=== PATIENT | male | born 1955 | race Caucasian/White ===

== ENCOUNTER 2019-09-03 12:00 | Outpatient (RCR) | payer OTHER, SELFPAY ==
--- NOTE | 2019-08-05 17:28 | PT.OIE ---
Current Diagnoses Unspecified urinary incontinence (07/31/19) Visit Care Team Role Provider Type Duc Lowery Attending Provider Non-Staff Primary Care Provider Referring Provider Specialty: Medical Address: [facility] [address] [facility], [place], [address] Email: Physical Therapy Initial Evaluation PT-OP-A Visit Information Start: 07/31/19 13:52 Freq: Status: Active Protocol: Document 07/31/19 13:52 [facility] (Rec: 07/31/19 14:36 [facility] [id number]) Out-Patient Physical Therapy Visit Information Visit Information Visit Type Initial Evaluation Visit Start Time 13:45 Visit Stop Time 14:30 Total Visit Minutes 45 Visit Number 1 Evaluation Information Evaluation Date 07/31/19 PT-OP-B Current Condition Start: 07/31/19 13:52 Freq: Status: Active Protocol: Document 07/31/19 13:52 [facility] (Rec: 07/31/19 14:36 [facility] [id number]) Current Condition History of Current Condition Onset Date 03/24/19 Current Complaints constant urinary leakage throughout the day if standing History of Current Condition Hx of prostate surgery 03/24/19 , he reports constant leakage during the day if he is standing, he reports he doesn't have a lot to void as she is leaking so much. He is not at this time working on a voiding schedule. After the surgery he was going through 2-3 pads per day, now he is down to 1-2 pads per day so symptoms are a little better. He does also c/o some soreness/tightness in his left anterior groin and hip that is new after surgery Treatment Goals Patient/Caregiver Goals The patients goals include eliminating urinary incontinence Current Functional Impairments (Reported) Functional Limitations- ADL's Urinary leakage with any activity in the standing position PT-OP-F Manual Assessment Start: 07/31/19 13:52 Freq: Status: Active Protocol: Document 07/31/19 16:49 [facility] (Rec: 08/05/19 16:50 [facility] [id number]) Manual Assessments Soft Tissue Assessment Soft Tissue Mobility Assessment scar tissue restrictions in the suprapubic fascia in the region of the bladder, iliopsoas restrictions in length on the left side as compared to the right side Other Manual Assessments Other Manual Assessments + geovanny test left side PT-OP-I Pelvic Floor Start: 07/31/19 13:52 Freq: Status: Active Protocol: Document 07/31/19 16:51 [facility] (Rec: 08/05/19 16:55 [facility] [id number]) Pelvic Floor Assessment Urine Pelvic Floor Surgery prostatectomy 03/24/19 Other Urinary Symptoms constant leakage in a standing position, the patient reports he is really not feeling the urge to void as he is leaking so much that when he does go to void there is nothing left to void. He is not currently on a voiding schedule Leakage Size Large Other Leakage Causes leakage occurs constantly in a standing position Leaks Per Day constant Voiding Frequency 10 Nocturia 2 Pads Used In 24 Hours 3-4 Urine Pad Type Depends Contraction Ability Voluntary Contraction Weak Muscle Endurance (Seconds) 5 Comments Pelvic Floor Comments external palpation was used over the pelvic floor today as Brendan did not feel comfortable with a rectal examination. He was cued to facilitate his anterior pelvic floor. He has been trying to hold for 10 seconds but the palpable contraction decreased after 5 seconds PT-OP-M Strength Start: 07/31/19 13:52 Freq: Status: Active Protocol: Document 07/31/19 16:51 [facility] (Rec: 08/05/19 16:55 [facility] [id number]) Hip Strength Hip Manual Muscle Testing Right Abduction 4 Good External Rotation 4 Good Left Abduction 3+ Fair+ External Rotation 3+ Fair+ PT-OP-Q Treatments Start: 07/31/19 13:52 Freq: Status: Active Protocol: Document 07/31/19 13:45 [facility] (Rec: 08/05/19 17:03 [facility] [id number]) Therapeutic Exercises Supine Exercises 3 Supine Exercise Name piriformis stretch Reps/Minutes hold 1-2 minutes 2 Supine Exercise Name geovanny test stretch for the iliopsoas Reps/Minutes hold 1 minute 1 Supine Exercise Name pelvic floor long holds Reps/Minutes 10 second hold time with 10 second relaxation Prone Exercises 1 Prone Exercise Name cobra stretch Reps/Minutes hold 30 sec - 1 min Sidelying Exercises 1 Sidelying Exercise Name sidelying clam shell Reps/Minutes 2 x 10 reps PT-OP-T Assessment and Plan Start: 07/31/19 13:52 Freq: Status: Active Protocol: Document 07/31/19 17:04 [facility] (Rec: 08/05/19 17:27 [facility] [id number]) Physical Therapy Assessment Rehab Potential Rehabilitation Potential Good Evaluation Complexity Number of Personal Factors/Comorbidities 0 Number of Body Systems Impaired 1-2 Clinical Presentation at Evaluation Stable Impairments Impairments Activity Tolerance,ROM,Soft Tissue Mobility,Strength Goals Four Impairment Decreased hip strength left hip Retirement Goal (LTG) improve hip abduction and ER from 3+/5 to 5/5 on the left hip Three Impairment Scar tissue restrictions in the suprapubic fascia 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 (LTG) With Myofascial release and scar tissue mobilization there is improved mobility of the suprapubic fascia which can help with improved bladder capacity to fill LTG Duration 8 weeks Two Impairment pt lacks a voiding schedule Short Term Goal (STG) Brendan is educated on a voiding schedule to empty his bladder at regular intervals throughout the day STG Duration 2 weeks One Impairment Urinary leakage in a standing position constant throughout the day 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 (LTG) With pelvic floor strengthening and education Brendan is able to increase his strength of the anterior pelvic floor to help improve the bladder support and decrease c/o urinary incontinence with standing activities. He is able to reduce to 0-1 pad per day LTG Duration 8 weeks Assessment Summary Assessment Brendan presents to physical therapy today with signs and symptoms consistent with urinary incontinence s/p prostatectomy 03/24/19. He reports his symptoms have improved some over time as he was leaking in all positions and now he primary c/o leakage in standing. He is not on a voiding schedule at this time and notes that when he does try to void there isn't much there as he has leaked so much . He is wearing depends for protection and needs to change these frequently throughout the day. With examination today there is scar tissue restrictions in the suprapubic fascia and decreased bladder mobilty. Left side iliopsoas is also restricted which Brendan reports as being a new symptoms since surgery. He was educated in both iliopsoas stretch and a stretch for the supra pubic fascia. Brendan did not feel comfortable with begining EMG biofeedback today with the rectal sensor or with a internal rectal examination. I used external palpation today for pelvic floor facilitation. He is able to recruit his anterior pelvic floor and states he has been working on endurance contractions as home. With palpation it appears he loses the contraction after approximately 5 seconds. EMG biofeedback may be helpful for visualization of the pelvic floor should Brendan chose to use this as a treatment option . He is also weak in his left hip ER and abductors as compared to his right side. Improving strength in this area may also help improve his pelvic floor. Brendan is a good candidate for PT Physical Therapy Plan Frequency and Duration Frequency of Treatment 1x/Week Duration of Treatment 8 Plan of Care Start Date 07/31/19 Plan of Care End Date 09/25/19 Therapeutic Interventions Therapeutic Interventions Manual Therapy,Neuromuscular Re-education,Patient/Caregiver Education,Self-Care/Home Management,Soft Tissue Mobilization,Therapeutic Exercises Modalities Biofeedback Next Visit Focus/Plan Next Note Type Treatment Note Next Visit Plan pelvic floor endurance training, manual MFR and scar tissue release over the anterior suprapubic fascia, review of stretches for the hip and abdominal wall, hip strengthening exercises
--- NOTE | 2019-08-05 17:29 | PT.OPPOC ---
Physical, Occupational & Speech Therapy At [facility] Current Diagnoses Unspecified urinary incontinence (07/31/19) Visit Care Team Role Provider Type Duc Lowery Attending Provider Non-Staff Primary Care Provider Referring Provider Specialty: Medical Address: [facility] [address], [place], [address] Email: Plan Of Care PT-OP-T Assessment and Plan Start: 07/31/19 13:52 Freq: Status: Active Protocol: Document 07/31/19 17:04 [facility] (Rec: 08/05/19 17:27 [facility] [id number]) Physical Therapy Assessment Rehab Potential Rehabilitation Potential Good Evaluation Complexity Number of Personal Factors/Comorbidities 0 Number of Body Systems Impaired 1-2 Clinical Presentation at Evaluation Stable Impairments Impairments Activity Tolerance,ROM,Soft Tissue Mobility,Strength Goals Four Impairment Decreased hip strength left hip 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 Building 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 (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) improve hip abduction and ER from 3+/5 to 5/5 on the left hip Three Impairment Scar tissue restrictions in the suprapubic fascia 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 Building 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 (LTG) With Myofascial release and scar tissue mobilization there is improved mobility of the suprapubic fascia which can help with improved bladder capacity to fill LTG Duration 8 weeks Two Impairment pt lacks a voiding schedule Short Term Goal (STG) Brendan is educated on a voiding schedule to empty his bladder at regular intervals throughout the day STG Duration 2 weeks One Impairment Urinary leakage in a standing position constant throughout the day 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 Building 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 (LTG) With pelvic floor strengthening and education Brendan is able to increase his strength of the anterior pelvic floor to help improve the bladder support and decrease c/o urinary incontinence with standing activities. He is able to reduce to 0-1 pad per day LTG Duration 8 weeks Assessment Summary Assessment Brendan presents to physical therapy today with signs and symptoms consistent with urinary incontinence s/p prostatectomy 03/24/19. He reports his symptoms have improved some over time as he was leaking in all positions and now he primary c/o leakage in standing. He is not on a voiding schedule at this time and notes that when he does try to void there isn't much there as he has leaked so much. He is wearing depends for protection and needs to change these frequently throughout the day. With examination today there is scar tissue restrictions in the suprapubic fascia and decreased bladder mobility. Left side iliopsoas is also restricted which Brendan reports as being a new symptoms since surgery. He was educated in both iliopsoas stretch and a stretch for the supra pubic fascia. Brendan did not feel comfortable with beginning EMG biofeedback today with the rectal sensor or with a internal rectal examination. I used external palpation today for pelvic floor facilitation. He is able to recruit his anterior pelvic floor and states he has been working on endurance contractions as home. With palpation it appears he loses the contraction after approximately 5 seconds. EMG biofeedback may be helpful for visualization of the pelvic floor should Brendan chose to use this as a treatment option . He is also weak in his left hip ER and abductors as compared to his right side. Improving strength in this area may also help improve his pelvic floor. Brendan is a good candidate for PT Physical Therapy Plan Frequency and Duration Frequency of Treatment 1x/Week Duration of Treatment 8 Plan of Care Start Date 07/31/19 Plan of Care End Date 09/25/19 Therapeutic Interventions Therapeutic Interventions Manual Therapy,Neuromuscular Re-education,Patient/Caregiver Education,Self-Care/Home Management,Soft Tissue Mobilization,Therapeutic Exercises Modalities Biofeedback Next Visit Focus/Plan Next Note Type Treatment Note Next Visit Plan pelvic floor endurance training, manual MFR and scar tissue release over the anterior suprapubic fascia, review of stretches for the hip and abdominal wall, hip strengthening exercises Plan of Care Dates Plan of Care Start Date 07/31/19 Plan of Care End Date 09/25/19 Electronically Signed by: Sapna Bowden, PT 08/05/19 [id number] Please Sign and Return: I have reviewed this Plan of Care and certify that the skilled therapy services above are required to meet the patient?s needs. Physician Signature Date Printed Name and Credentials Clinical Instructor Signature Printed Name and Credentials
--- NOTE | 2019-08-06 12:53 | PT.OTN ---
Current Diagnoses Unspecified urinary incontinence (08/06/19) Physical Therapy Treatment Note PT-OP-A Visit Information Start: 07/31/19 13:52 Freq: Status: Active Protocol: Document 08/06/19 12:38 [facility] (Rec: 08/06/19 12:51 [facility] [email or web address]) Out-Patient Physical Therapy Visit Information Visit Information Visit Type Treatment Note Visit Start Time 10:30 Visit Stop Time 11:15 Total Visit Minutes 45 Visit Number 2 Evaluation Information Evaluation Date 07/31/19 PT-OP-B Current Condition Start: 07/31/19 13:52 Freq: Status: Active Protocol: Document 07/31/19 13:52 [facility] (Rec: 07/31/19 14:36 [facility] [id number]) Current Condition History of Current Condition Onset Date 03/24/19 Current Complaints constant urinary leakage throughout the day if standing History of Current Condition Hx of prostate surgery 03/24/19 , he reports constant leakage during the day if he is standing, he reports he doesn' t have a lot to void as she is leaking so much. He is not at this time working on a voiding schedule. After the surgery he was going through 2-3 pads per day, now he is down to 1-2 pads per day so symptoms are a little better. He does also c/o some soreness/tightness in his left anterior groin and hip that is new after surgery Treatment Goals Patient/Caregiver Goals The patients goals include eliminating urinary incontinence Current Functional Impairments (Reported) Functional Limitations- ADL's Urinary leakage with any activity in the standing position PT-OP-C Subjective Start: 07/31/19 13:52 Freq: Status: Active Protocol: Document 08/06/19 12:52 [facility] (Rec: 08/06/19 12:52 [facility] [email or web address]) OP-PT Subjective Patient Comments Patient Comments pt reports his symptoms are getting a little better, he is down to using approximately 1 pad per day Patient Reported Progress Improving PT-OP-F Manual Assessment Start: 07/31/19 13:52 Freq: Status: Active Protocol: Document 07/31/19 16:49 [facility] (Rec: 08/05/19 16:50 [facility] [id number]) Manual Assessments Soft Tissue Assessment Soft Tissue Mobility Assessment scar tissue restrictions in the suprapubic fascia in the region of the bladder, iliopsoas restrictions in length on the left side as compared to the right side Other Manual Assessments Other Manual Assessments + geovanny test left side PT-OP-I Pelvic Floor Start: 07/31/19 13:52 Freq: Status: Active Protocol: Document 07/31/19 16:51 [facility] (Rec: 08/05/19 16:55 [facility] [id number]) Pelvic Floor Assessment Urine Pelvic Floor Surgery prostatectomy 03/24/19 Other Urinary Symptoms constant leakage in a standing position, the patient reports he is really not feeling the urge to void as he is leaking so much that when he does go to void there is nothing left to void. He is not currently on a voiding schedule Leakage Size Large Other Leakage Causes leakage occurs constantly in a standing position Leaks Per Day constant Voiding Frequency 10 Nocturia 2 Pads Used In 24 Hours 3-4 Urine Pad Type Depends Contraction Ability Voluntary Contraction Weak Muscle Endurance (Seconds) 5 Comments Pelvic Floor Comments external palpation was used over the pelvci floro today as Brendan did not feel comfortable with a rectal examination. He was cued to facilitate his anterior pelvic floor. He has been trying to hold for 10 seconds but the palpable contraction decreased after 5 sedconds PT-OP-M Strength Start: 07/31/19 13:52 Freq: Status: Active Protocol: Document 07/31/19 16:51 [facility] (Rec: 08/05/19 16:55 [facility] [id number]) Hip Strength Hip Manual Muscle Testing Right Abduction 4 Good External Rotation 4 Good Left Abduction 3+ Fair+ External Rotation 3+ Fair+ PT-OP-Q Treatments Start: 07/31/19 13:52 Freq: Status: Active Protocol: Document 08/06/19 12:38 [facility] (Rec: 08/06/19 12:51 [facility] [email or web address]) Therapeutic Exercises Supine Exercises 3 Supine Exercise Name piriformis stretch Reps/Minutes hold 1-2 minutes 2 Supine Exercise Name geovanny test stretch for the iliopsoas Reps/Minutes hold 1 minute 1 Supine Exercise Name pelvic floor long holds Reps/Minutes 10 second hold time with 10 second relaxation Prone Exercises 1 Prone Exercise Name cobra stretch Reps/Minutes hold 30 sec - 1 min Sidelying Exercises 2 Sidelying Exercise Name trial of pelvic floor facilitation in sidelying Side left Comments cues to relax the abdominal wall Other Exercises 1 Other Exercise Name quadruped TA facilitation Comments cues to relax the anterior pelvic floor Manual Therapy Treatment Soft Tissue Mobilization 1 Body Location STM over the suprapubic fascial and bladder mobilizations Mobilization Type Myofascial Release Intensity/Depth Moderate Body Position Supine Self-Care/Home Management Treatment Education Patient Education Home Exercise Program Other Education pt educated on toileting techniques including sitting to void after standing, cues to relax the abdominal wall and to clear the urine out of the urethra. PT-OP-T Assessment and Plan Start: 07/31/19 13:52 Freq: Status: Active Protocol: Document 08/06/19 12:38 [facility] (Rec: 08/06/19 12:51 [facility] [email or web address]) Physical Therapy Assessment Assessment Summary Assessment Worked on releasing the tightness in the fascia over the suprapubic fascia and bladder. Brendan tends to keep his upper abdominal wall very tight and guarded. We did go over ways to relax the upper abdominal wall at rest to decrease any down mcduffie pressure on the bladder Physical Therapy Plan Frequency and Duration Frequency of Treatment 1x/Week Duration of Treatment 8 Plan of Care Start Date 07/31/19 Plan of Care End Date 09/25/19
--- NOTE | 2019-08-20 14:44 | PT.OTN ---
Current Diagnoses Unspecified urinary incontinence (08/20/19) Physical Therapy Treatment Note PT-OP-A Visit Information Start: 07/31/19 13:52 Freq: Status: Active Protocol: Document 08/20/19 12:02 [facility] (Rec: 08/21/19 09:49 [facility] [id number]) Out-Patient Physical Therapy Visit Information Visit Information Visit Type Treatment Note PT-OP-B Current Condition Start: 07/31/19 13:52 Freq: Status: Active Protocol: Document 07/31/19 13:52 [facility] (Rec: 07/31/19 14:36 [facility] [id number]) Current Condition History of Current Condition Onset Date 03/24/19 Current Complaints constant urinary leakage throughout the day if standing History of Current Condition Hx of prostate surgery 03/24/19 , he reports constant leakage during the day if he is standing, he reports he doesn' t have a lot to void as she is leaking so much. He is not at this time working on a voiding schedule. After the surgery he was going through 2-3 pads per day, now he is down to 1-2 pads per day so symptoms are a little better. He does also c/o some soreness/tightness in his left anterior groin and hip that is new after surgery Treatment Goals Patient/Caregiver Goals The patients goals include eliminating urinary incontinence Current Functional Impairments (Reported) Functional Limitations- ADL's Urinary leakage with any activity in the standing position PT-OP-C Subjective Start: 07/31/19 13:52 Freq: Status: Active Protocol: Document 08/20/19 12:00 [facility] (Rec: 08/26/19 14:43 [facility] [id number]) OP-PT Subjective Patient Comments Patient Comments pt reports symptoms are a little better, he is working on stretches and his exercises at home. He does report he just found out he has to have radiation. He is getting a hormone shot today Patient Reported Progress Improving PT-OP-F Manual Assessment Start: 07/31/19 13:52 Freq: Status: Active Protocol: Document 07/31/19 16:49 [facility] (Rec: 08/05/19 16:50 [facility] [id number]) Manual Assessments Soft Tissue Assessment Soft Tissue Mobility Assessment scar tissue restrictions in the suprapubic fascia in the region of the bladder, iliopsoas restrictions in length on the left side as compared to the right side Other Manual Assessments Other Manual Assessments + geovanny test left side PT-OP-I Pelvic Floor Start: 07/31/19 13:52 Freq: Status: Active Protocol: Document 07/31/19 16:51 [facility] (Rec: 08/05/19 16:55 [facility] [id number]) Pelvic Floor Assessment Urine Pelvic Floor Surgery prostatectomy 03/24/19 Other Urinary Symptoms constant leakage in a standing position, the patient reports he is really not feeling the urge to void as he is leaking so much that when he does go to void there is nothing left to void. He is not currently on a voiding schedule Leakage Size Large Other Leakage Causes leakage occurs constantly in a standing position Leaks Per Day constant Voiding Frequency 10 Nocturia 2 Pads Used In 24 Hours 3-4 Urine Pad Type Depends Contraction Ability Voluntary Contraction Weak Muscle Endurance (Seconds) 5 Comments Pelvic Floor Comments external palpation was used over the pelvic floor today as Brendan did not feel comfortable with a rectal examination. He was cued to facilitate his anterior pelvic floor. He has been trying to hold for 10 seconds but the palpable contraction decreased after 5 seconds PT-OP-M Strength Start: 07/31/19 13:52 Freq: Status: Active Protocol: Document 07/31/19 16:51 [facility] (Rec: 08/05/19 16:55 [facility] [id number]) Hip Strength Hip Manual Muscle Testing Right Abduction 4 Good External Rotation 4 Good Left Abduction 3+ Fair+ External Rotation 3+ Fair+ PT-OP-Q Treatments Start: 07/31/19 13:52 Freq: Status: Active Protocol: Document 08/20/19 12:00 [facility] (Rec: 08/26/19 14:43 [facility] [email or web address]) Therapeutic Exercises Supine Exercises 3 Supine Exercise Name piriformis stretch Reps/Minutes hold 1-2 minutes 2 Supine Exercise Name geovanny test stretch for the iliopsoas Reps/Minutes hold 1 minute 1 Supine Exercise Name pelvic floor long holds Reps/Minutes 10 second hold time with 10 second relaxation Prone Exercises 1 Prone Exercise Name cobra stretch Reps/Minutes hold 30 sec - 1 min Other Exercises 3 Other Exercise Name quadruped opposite arm raise 2 Other Exercise Name plank with pelvic floor and TA facilitation Reps/Minutes hold 10 seconds and progress for longer duration as able 1 Other Exercise Name quadruped TA facilitation Comments cues to relax the anterior pelvic floor Manual Therapy Treatment Soft Tissue Mobilization 1 Body Location STM over the suprapubic fascial and bladder mobilizations Mobilization Type Myofascial Release Intensity/Depth Moderate Body Position Supine PT-OP-T Assessment and Plan Start: 07/31/19 13:52 Freq: Status: Active Protocol: Document 08/20/19 12:00 [facility] (Rec: 08/26/19 14:43 [facility] [email or web address]) Physical Therapy Assessment Assessment Summary Assessment improving ability to sustain a pelvic floor contraction. Emphasized stretches for over the anterior pelvic fascia for home Physical Therapy Plan Frequency and Duration Frequency of Treatment 1x/Week Duration of Treatment 8 Plan of Care Start Date 07/31/19 Plan of Care End Date 09/25/19 Therapeutic Interventions Therapeutic Interventions Manual Therapy,Neuromuscular Re-education,Patient/Caregiver Education,Self-Care/Home Management,Soft Tissue Mobilization,Therapeutic Exercises Modalities Biofeedback Next Visit Focus/Plan Next Note Type Treatment Note Next Visit Plan pelvic floor endurance training, manual MFR and scar tissue release over the anterior suprapubic fascia, review of stretches for the hip and abdominal wall, hip strengthening exercises
--- NOTE | 2019-08-28 18:34 | PT.OTN ---
Current Diagnoses Unspecified urinary incontinence (08/27/19) Physical Therapy Treatment Note PT-OP-A Visit Information Start: 07/31/19 13:52 Freq: Status: Active Protocol: Document 08/27/19 18:28 [facility] (Rec: 08/28/19 18:30 [facility] [id number]) Out-Patient Physical Therapy Visit Information Visit Information Visit Type Treatment Note Visit Start Time 12:00 Visit Stop Time 12:45 Total Visit Minutes 45 Visit Number 4 PT-OP-B Current Condition Start: 07/31/19 13:52 Freq: Status: Active Protocol: Document 07/31/19 13:52 [facility] (Rec: 07/31/19 14:36 [facility] [id number]) Current Condition History of Current Condition Onset Date 03/24/19 Current Complaints constant urinary leakage throughout the day if standing History of Current Condition Hx of prostate surgery 03/24/19 , he reports constant leakage during the day if he is standing, he reports he doesn' t have a lot to void as she is leaking so much. He is not at this time working on a voiding schedule. After the surgery he was going through 2-3 pads per day, now he is down to 1-2 pads per day so symptoms are a little better. He does also c/o some soreness/tightness in his left anterior groin and hip that is new after surgery Treatment Goals Patient/Caregiver Goals The patients goals include eliminating urinary incontinence Current Functional Impairments (Reported) Functional Limitations- ADL's Urinary leakage with any activity in the standing position PT-OP-C Subjective Start: 07/31/19 13:52 Freq: Status: Active Protocol: Document 08/27/19 18:28 [facility] (Rec: 08/28/19 18:30 [facility] [id number]) OP-PT Subjective Patient Comments Patient Comments pt reports he is seeing improvements. He hiked [place] this week and did not leak nearly as much as he had in the past Patient Reported Progress Improving PT-OP-F Manual Assessment Start: 07/31/19 13:52 Freq: Status: Active Protocol: Document 07/31/19 16:49 [facility] (Rec: 08/05/19 16:50 [facility] [id number]) Manual Assessments Soft Tissue Assessment Soft Tissue Mobility Assessment scar tissue restrictions in the suprapubic fascia in the region of the bladder, iliopsoas restrictions in length on the left side as compared to the right side Other Manual Assessments Other Manual Assessments + geovanny test left side PT-OP-I Pelvic Floor Start: 07/31/19 13:52 Freq: Status: Active Protocol: Document 07/31/19 16:51 [facility] (Rec: 08/05/19 16:55 [facility] [id number]) Pelvic Floor Assessment Urine Pelvic Floor Surgery prostatectomy 03/24/19 Other Urinary Symptoms constant leakage in a standing position, the patient reports he is really not feeling the urge to void as he is leaking so much that when he does go to void there is nothing left to void. He is not currently on a voiding schedule Leakage Size Large Other Leakage Causes leakage occurs constantly in a standing position Leaks Per Day constant Voiding Frequency 10 Nocturia 2 Pads Used In 24 Hours 3-4 Urine Pad Type Depends Contraction Ability Voluntary Contraction Weak Muscle Endurance (Seconds) 5 Comments Pelvic Floor Comments external palpation was used over the pelvci floro today as Brendan did not feel comfortable with a rectal examination. He was cued to facilitate his anterior pelvic floor. He has been trying to hold for 10 seconds but the palpable contraction decreased after 5 sedconds PT-OP-M Strength Start: 07/31/19 13:52 Freq: Status: Active Protocol: Document 07/31/19 16:51 [facility] (Rec: 08/05/19 16:55 [facility] [id number]) Hip Strength Hip Manual Muscle Testing Right Abduction 4 Good External Rotation 4 Good Left Abduction 3+ Fair+ External Rotation 3+ Fair+ PT-OP-Q Treatments Start: 07/31/19 13:52 Freq: Status: Active Protocol: Document 08/27/19 18:32 [facility] (Rec: 08/28/19 18:34 [facility] [email or web address]) Therapeutic Exercises Supine Exercises 2 Supine Exercise Name geovanny test stretch for the iliopsoas Reps/Minutes hold 1 minute 1 Supine Exercise Name pelvic floor long holds Reps/Minutes 10 second hold time with 10 second relaxation Prone Exercises 1 Prone Exercise Name cobra stretch Reps/Minutes hold 30 sec - 1 min Other Exercises 5 Other Exercise Name supine ball stretch 4 Other Exercise Name sideplanks Reps/Minutes x 1 on each side 3 Other Exercise Name quadruped opposite arm raise 2 Other Exercise Name plank with pelvic floor and TA facilitation Reps/Minutes hold 10 seconds and progress for longer duration as able 1 Other Exercise Name quadruped TA facilitation Comments cues to relax the anterior pelvic floor Manual Therapy Treatment Soft Tissue Mobilization 2 Body Location MFR over the abdominal wall Comments gentle MFR for improved mobility of the abdominal wall . Still very guarded and limited mobility 1 Body Location STM over the suprapubic fascial and bladder mobilizations Mobilization Type Myofascial Release Intensity/Depth Moderate Body Position Supine PT-OP-T Assessment and Plan Start: 07/31/19 13:52 Freq: Status: Active Protocol: Document 08/27/19 18:28 [facility] (Rec: 08/28/19 18:30 [facility] [email or web address]) Physical Therapy Assessment Assessment Summary Assessment Still very tight in the abdominal wall, worked on left iliopsoas flexibilty as well as scar tissue mobility over the bladder Physical Therapy Plan Frequency and Duration Frequency of Treatment 1x/Week Duration of Treatment 8 Plan of Care Start Date 07/31/19 Plan of Care End Date 09/25/19 Therapeutic Interventions Therapeutic Interventions Manual Therapy,Neuromuscular Re-education,Patient/Caregiver Education,Self-Care/Home Management,Soft Tissue Mobilization,Therapeutic Exercises Modalities Biofeedback Next Visit Focus/Plan Next Note Type Treatment Note Next Visit Plan pelvic floor endurance training, manual MFR and scar tissue release over the anterior supubic fascia, review of stretches for the hip and abdominal wall, hip strengtheing exercises
--- NOTE | 2019-09-03 14:33 | PT.OTN ---
Current Diagnoses Unspecified urinary incontinence (09/03/19) Physical Therapy Treatment Note PT-OP-A Visit Information Start: 07/31/19 13:52 Freq: Status: Active Protocol: Document 09/03/19 11:56 [facility] (Rec: 09/03/19 12:06 [facility] [id number]) Out-Patient Physical Therapy Visit Information Visit Information Visit Type Treatment Note Visit Start Time 12:00 PT-OP-B Current Condition Start: 07/31/19 13:52 Freq: Status: Active Protocol: Document 07/31/19 13:52 [facility] (Rec: 07/31/19 14:36 [facility] [id number]) Current Condition History of Current Condition Onset Date 03/24/19 Current Complaints constant urinary leakage throughout the day if standing History of Current Condition Hx of prostate surgery 03/24/19 , he reports constant leakage during the day if he is standing, he reports he doesn' t have a lot to void as she is leaking so much. He is not at this time working on a voiding schedule. After the surgery he was going through 2-3 pads per day, now he is down to 1-2 pads per day so symptoms are a little better. He does also c/o some soreness/tightness in his left anterior groin and hip that is new after surgery Treatment Goals Patient/Caregiver Goals The patients goals include eliminating urinary incontinence Current Functional Impairments (Reported) Functional Limitations- ADL's Urinary leakage with any activity in the standing position PT-OP-C Subjective Start: 07/31/19 13:52 Freq: Status: Active Protocol: Document 09/03/19 11:56 [facility] (Rec: 09/03/19 12:06 [facility] [id number]) OP-PT Subjective Patient Comments Patient Comments slight improvement every week, sporatic leaks with quick movements. ex reaching down to his dog can trigger it. Nighttime has been reasonably good. Patient Reported Progress Improving PT-OP-F Manual Assessment Start: 07/31/19 13:52 Freq: Status: Active Protocol: Document 07/31/19 16:49 [facility] (Rec: 08/05/19 16:50 [facility] [id number]) Manual Assessments Soft Tissue Assessment Soft Tissue Mobility Assessment scar tissue restrictions in the suprapubic fascia in the region of the bladder, iliopsoas restrictions in length on the left side as compared to the right side Other Manual Assessments Other Manual Assessments + geovanny test left side PT-OP-I Pelvic Floor Start: 07/31/19 13:52 Freq: Status: Active Protocol: Document 07/31/19 16:51 [facility] (Rec: 08/05/19 16:55 [facility] [id number]) Pelvic Floor Assessment Urine Pelvic Floor Surgery prostatectomy 03/24/19 Other Urinary Symptoms constant leakage in a standing position, the patient reports he is really not feeling the urge to void as he is leaking so much that when he does go to void there is nothing left to void. He is not currently on a voiding schedule Leakage Size Large Other Leakage Causes leakage occurs constantly in a standing position Leaks Per Day constant Voiding Frequency 10 Nocturia 2 Pads Used In 24 Hours 3-4 Urine Pad Type Depends Contraction Ability Voluntary Contraction Weak Muscle Endurance (Seconds) 5 Comments Pelvic Floor Comments external palpation was used over the pelvci floro today as Brendan did not feel comfortable with a rectal examination. He was cued to facilitate his anterior pelvic floor. He has been trying to hold for 10 seconds but the palpable contraction decreased after 5 sedconds PT-OP-M Strength Start: 07/31/19 13:52 Freq: Status: Active Protocol: Document 07/31/19 16:51 [facility] (Rec: 08/05/19 16:55 [facility] [id number]) Hip Strength Hip Manual Muscle Testing Right Abduction 4 Good External Rotation 4 Good Left Abduction 3+ Fair+ External Rotation 3+ Fair+ PT-OP-Q Treatments Start: 07/31/19 13:52 Freq: Status: Active Protocol: Document 09/03/19 14:29 [facility] (Rec: 09/03/19 14:33 [facility] [id number]) Therapeutic Exercises Supine Exercises 6 Supine Exercise Name TA lower abdominal progression Reps/Minutes x 5 Comments pt educated in this but this was not given for home 5 Supine Exercise Name TA facilitation with SLR Reps/Minutes x 10 reps 4 Supine Exercise Name TA facilitation with marches Reps/Minutes x 10 Comments lower abdominal progression level 1 A 2 Supine Exercise Name geovanny test stretch for the iliopsoas Reps/Minutes hold 1 minute Manual Therapy Treatment Soft Tissue Mobilization 2 Body Location MFR over the abdominal wall Comments gentle MFR for improved mobility of the abdominal wall . Still very guarded and limited mobility 1 Body Location STM over the suprapubic fascial and bladder mobilizations Mobilization Type Myofascial Release Intensity/Depth Moderate Body Position Supine Manual Techniques 1 Type manual sidelying stretch to the left iliopsoas Comments to open up the left hip, pt still noting tightness here but it is decreasing PT-OP-T Assessment and Plan Start: 07/31/19 13:52 Freq: Status: Active Protocol: Document 09/03/19 14:29 [facility] (Rec: 09/03/19 14:33 [facility] [id number]) Physical Therapy Assessment Assessment Summary Assessment the fascia over the suprapubic region was not as tight today . Symptoms of urinary incontinence is lessening Physical Therapy Plan Frequency and Duration Frequency of Treatment 1x/Week Duration of Treatment 8 Plan of Care Start Date 07/31/19 Plan of Care End Date 09/25/19 Next Visit Focus/Plan Next Note Type Treatment Note Next Visit Plan pelvic floor endurance training, manual MFR and scar tissue release over the anterior suprapubic fascia, review of stretches for the hip and abdominal wall, hip strengthening exercises
--- NOTE | 2020-02-23 13:59 | PT.OPDS ---
Current Diagnoses Unspecified urinary incontinence (09/03/19) Visit Care Team Role Provider Type uDc Lowery Attending Provider Non-Staff Primary Care Provider Referring Provider Specialty: [facility] [address], [place], [address] Email: Visit Number Visit Number 4 Discharge Summary PT-OP-B Current Condition Start: 07/31/19 13:52 Freq: Status: Active Protocol: Document 07/31/19 13:52 [facility] (Rec: 07/31/19 14:36 [facility] [id number]) Current Condition History of Current Condition Onset Date 03/24/19 Current Complaints constant urinary leakage throughout the day if standing History of Current Condition Hx of prostate surgery 03/24/19 , he reports constant leakage during the day if he is standing, he reports he doesn' t have a lot to void as she is leaking so much. He is not at this time working on a voiding schedule. After the surgery he was going through 2-3 pads per day, now he is down to 1-2 pads per day so symptoms are a little better. He does also c/o some soreness/tightness in his left anterior groin and hip that is new after surgery Treatment Goals Patient/Caregiver Goals The patients goals include eliminating urinary incontinence Current Functional Impairments (Reported) Functional Limitations- ADL's Urinary leakage with any activity in the standing position PT-OP-C Subjective Start: 07/31/19 13:52 Freq: Status: Active Protocol: Document 09/03/19 11:56 [facility] (Rec: 09/03/19 12:06 [facility] [id number]) OP-PT Subjective Patient Comments Patient Comments slight improvement every week, sporatic leaks with quick movements. ex reaching down to his dog can trigger it. Nighttime has been reasonably good. Patient Reported Progress Improving PT-OP-F Manual Assessment Start: 07/31/19 13:52 Freq: Status: Active Protocol: Document 07/31/19 16:49 [facility] (Rec: 08/05/19 16:50 [facility] [id number]) Manual Assessments Soft Tissue Assessment Soft Tissue Mobility Assessment scar tissue restrictions in the suprapubic fascia in the region of the bladder, iliopsoas restrictions in length on the left side as compared to the right side Other Manual Assessments Other Manual Assessments + geovanny test left side PT-OP-I Pelvic Floor Start: 07/31/19 13:52 Freq: Status: Active Protocol: Document 07/31/19 16:51 [facility] (Rec: 08/05/19 16:55 [facility] [id number]) Pelvic Floor Assessment Urine Pelvic Floor Surgery prostatectomy 03/24/19 Other Urinary Symptoms constant leakage in a standing position, the patient reports he is really not feeling the urge to void as he is leaking so much that when he does go to void there is nothing left to void. He is not currently on a voiding schedule Leakage Size Large Other Leakage Causes leakage occurs constantly in a standing position Leaks Per Day constant Voiding Frequency 10 Nocturia 2 Pads Used In 24 Hours 3-4 Urine Pad Type Depends Contraction Ability Voluntary Contraction Weak Muscle Endurance (Seconds) 5 Comments Pelvic Floor Comments external palpation was used over the pelvci floro today as Brendan did not feel comfortable with a rectal examination. He was cued to facilitate his anterior pelvic floor. He has been trying to hold for 10 seconds but the palpable contraction decreased after 5 sedconds PT-OP-M Strength Start: 07/31/19 13:52 Freq: Status: Active Protocol: Document 07/31/19 16:51 [facility] (Rec: 08/05/19 16:55 [facility] [id number]) Hip Strength Hip Manual Muscle Testing Right Abduction 4 Good External Rotation 4 Good Left Abduction 3+ Fair+ External Rotation 3+ Fair+ PT-OP-T Assessment and Plan Start: 07/31/19 13:52 Freq: Status: Active Protocol: Document 02/23/20 13:56 [facility] (Rec: 02/23/20 13:59 [facility] [id number]) Physical Therapy Assessment Assessment Summary Assessment Brendan has not been seen since the Covid 19 pandemic. He did email me that he was still having symptoms but that he was working on his HEP. He will be DC at this time Physical Therapy Plan Discharge Physical Therapy Discharge Reasons Patient Request Discharge Comments Brendan will be discharged to a [facility] at this time.
== END 2020-02-24 11:22 ==
LOC: PHYS 12:00
PROVIDERS: PCP Internal Medicine; Referring Provider Internal Medicine; Visit Provider Internal Medicine
DX: R32 Unspecified urinary incontinence (principal)
CPT/HCPCS: 97110; 97140; 97161; 97535

== ENCOUNTER 2023-06-19 11:58 | Day surgery (SDC) | payer OTHER, SELFPAY ==
[2023-06-19 12:11] VITALS: BMI 23.3
[2023-06-19 12:26] VITALS: BP 150/69; PULSE 77; RESP 21; TEMP 36.5; O2SAT 97
[2023-06-19] MEDS: LACTATED RINGERS 1,000 ML 42 ML IV (12:31)
--- NOTE | 2023-06-19 12:40 | P.HP_ITS ---
History of Present Illness History of Present Illness Date Patient Seen: 06/19/23 Time Patient Seen: 12:40 Chief complaint: Colonoscopy Narrative: 67-year-old man personal history of colonic polyps here for screening colonoscopy. Last colonoscopy 2017. No family history of intestinal malignancy. No abdominal concerns today. [facility] Medical History Gynecomastia, male History of malignant neoplasm of prostate Erectile dysfunction after radical prostatectomy Prostate cancer Kidney stone Prostate cancer Neoplasm of prostate Surgical History H/O prostate biopsy H/O prostatectomy H/O hernia repair Social History household members: spouse Smoking Status: Never smoker alcohol intake: current Meds Home Medications and Allergies Home Medications Medication Instructions Recorded Confirmed Type aspirin 81 mg tablet,delayed 81 mg PO DAILY 02/16/20 06/19/23 History release (Adult Aspirin Regimen) coenzyme [id number] E 100 mg-100 cap PO 02/16/20 05/23/23 History unit capsule red yeast rice 600 mg capsule 1,200 mg PO BID 11/16/21 06/19/23 History Allergies Allergy/AdvReac Type Severity Reaction Status Date / Time No Known Drug Allergies Allergy Verified 06/19/23 12:31 Exam Vital Signs (past 8 hours): - 06/19/23 12:26 Temperature 97.7 F Pulse Rate 77 Respiratory Rate 21 Blood Pressure 150/69 H Pulse Oximetry 97 Oxygen Delivery Method Room Air Oxygen Delivery Method Room Air Narrative Exam Narrative: General adult man alert oriented no acute distress Chest nonlabored respiration Extremities warm well perfused Assessment & Plan Assessment & Plan narrative: The patient requires colorectal screening and colonoscopy is recommended. Technical details were discussed. Risks, benefits, alternatives explained. Risks including but not limited to myocardial infarction, aspiration, bleeding, pain, missed lesion, incomplete examination, need for further radiographic studies, colonic perforation, and need for major abdominal surgery were discussed. All questions were answered to their satisfaction, and they are in agreement with this plan.
--- NOTE | 2023-06-19 12:41 | P.OP.COLON_ITS ---
Operative Date/Time/Diagnoses Date of procedure: 06/19/23 Time of procedure: 12:41 Pre-op diagnosis: Personal history of colonic polyps Procedure & Clinicians Study performed: Colonoscopy Indications: Personal history of colonic polyps Colorectal screening Surgeon: Alfonso Cooley Procedure Notes Procedure in detail: The history and physical was performed/updated and the patient is ASA class is 2. The procedure was discussed in detail with the patient. Potential risks complications including infection, bleeding, missed diagnosis, perforation, need for surgery, and were explained. Their questions were answered and informed consent was obtained. Patient was brought to the procedure room and placed standard monitoring equipment. The patient's vital signs were monitored continuously throughout the entire procedure. Prior to starting time-out was performed. The patient was placed in the left lateral recumbent position. Procedural sedation was administered by anesthesia. Examination began with a thorough inspection of the perianal area there was no evidence of fissures, fistulae, external hemorrhoids or cutaneous malignancy. The colonoscopy scope was then placed into the anal canal and was advanced to the cecum, which was identified by the ileocecal valve, the appendiceal orifice and the confluence of the taenia. The scope was then slowly withdrawn examining colon thoroughly in all directions, irrigating it of any residual stool. The scope was retroflexed within the rectum The patient tolerated the procedure well. They will be discharged once criteria are met. The prep was of good/excellent quality. The withdrawl time was 6 minutes. FINDINGS * Unremarkable colonoscopy. No masses, polyps, inflammation. Complications: none Impression: Unremarkable colonoscopy Post-procedure Recommendations: High fiber diet Plan for aftercare: No further colonoscopy necessary unless symptomatic Disposition: same day surgery
[2023-06-19 13:01] VITALS: BP 103/54; PULSE 71; RESP 16; TEMP 37.2; O2SAT 95
[2023-06-19 13:07] VITALS: BP 106/55; PULSE 67; RESP 11; O2SAT 95
[2023-06-19 13:11] VITALS: BP 87/51; PULSE 65; RESP 18; O2SAT 96
[2023-06-19 13:16] VITALS: BP 112/60; PULSE 80; RESP 18; O2SAT 96
== END 2023-06-19 13:28 | disposition home or self-care (01) ==
PROVIDERS: PCP Internal Medicine; Referring Provider Surgery; Visit Provider Surgery
PROC: 0DJD8ZZ Inspection of Lower Intestinal Tract, Via Natural or Artificial Opening Endoscopic (ICD-10-PCS; CPT 45378; principal; 2023-06-19 13:15)
DX: Z12.11 Encounter for screening for malignant neoplasm of colon (principal); Z86.010 Personal history of colon polyps
CPT/HCPCS: 45378; J2704